=== PATIENT | female | born 1965 | race Two or more races ===

== ENCOUNTER 2019-03-09 10:46 | Emergency (ER) | payer MEDICAID ==
[~2019-03-09] VITALS: Ht 160 cm; Wt 131.5 kg
[2019-03-09 10:53] VITALS: BP 170/83
[2019-03-09 11:23] LABS: Basophils # (auto) 0 uL; Basophils % (auto) 0.8 % (0.0-2.0); Eosinophils # (auto) 0.2 uL; Eosinophils % (auto) 3.3 % (0.0-7.0); Hematocrit 45.4 % (36.0-46.0); Hemoglobin 15.8 g/dL (12.2-16.2); Lymphocytes # (auto) 1.7 uL; Lymphocytes % (auto) 29.7 % (10.0-50.0); Mean Corpuscular Hemoglobin 30.7 pg (28.0-32.0); Mean Corpuscular Hgb Conc. 34.8 g/dL (32.0-36.0); Mean Corpuscular Volume 88.1 fL (80.0-100.0); Monocytes # (auto) 0.3 uL; Monocytes % (auto) 4.9 % (0.0-12.0); Neutrophils # (auto) 3.5 uL; Neutrophils % (auto) 61.3 % (37.0-80.0); Nucleated Red Blood Cells % 0.2 %; Platelet Count (auto) 240 10^3/uL (140-450); Red Blood Cells 5.15 10^6/uL (4.0-5.20); Red Cell Distribution Width 12.8 % (11.8-14.3); White Blood Cell 5.8 10^3/uL (4.4-10.8)
[2019-03-09 11:39] LABS: Anion Gap 5 (5-15); Blood Urea Nitrogen 10 mg/dL (7-18); Calcium 8.9 mg/dL (8.5-10.1); Carbon Dioxide 27 mmol/L (21-32); Chloride 105 mmol/L (98-107); Glucose 140 mg/dL (74-106); Potassium 3.9 mmol/L (3.5-5.1); Sodium 137 mmol/L (136-145)
[2019-03-09 11:47] LABS: Alanine Aminotransferase 36 U/L (13-56); Alkaline Phosphatase 101 U/L (45-117); Aspartate Aminotransferase 30 U/L (15-37); BUN/Creatinine Ratio 15.6; Bilirubin, Total 1.5 mg/dL (0.2-1.0); GFR African American 124 mL/min; GFR Non-African American 103 mL/min; Total Protein 7.6 g/dL (6.4-8.2)
== END 2019-03-09 15:35 | disposition left against medical advice (07) ==
LOC: ER 10:46
DX: M25.512 Pain in left shoulder (principal); Z53.21 Procedure and treatment not carried out due to patient leaving prior to being seen by health care provider
CPT/HCPCS: 36415; 80053; 84484; 85025

== ENCOUNTER 2022-01-01 07:16 | Emergency (ER) | payer MEDICAID ==
[~2022-01-01] VITALS: Ht 160 cm; Wt 136.1 kg
[2022-01-01 08:02] LABS: Basophils # (auto) 0 10 ^3/uL (0-0.2); Basophils % (auto) 0.7 % (0.0-2.0); Eosinophils # (auto) 0.1 10 ^3/uL (0-0.8); Eosinophils % (auto) 1.8 % (0.0-7.0); Hematocrit 48.4 % (36.0-46.0); Hemoglobin 16.4 g/dL (12.2-16.2); Lymphocytes # (auto) 1.6 10 ^3/uL (0.4-5.4); Lymphocytes % (auto) 28.7 % (10.0-50.0); Mean Corpuscular Hemoglobin 30.1 pg (28.0-32.0); Mean Corpuscular Hgb Conc. 33.8 g/dL (32.0-36.0); Monocytes # (auto) 0.3 10 ^3/uL (0-1.3); Monocytes % (auto) 5.8 % (0.0-12.0); Neutrophils # (auto) 3.6 10 ^3/uL (1.6-8.6); Nucleated Red Blood Cells % 0.2 %; Red Blood Cells 5.44 10^6/uL (4.0-5.20); Red Cell Distribution Width 13.1 % (11.8-14.3); White Blood Cell 5.7 10^3/uL (4.4-10.8)
[2022-01-01 08:15] LABS: Albumin 3.9 g/dL (3.4-5.0); Calcium 9.7 mg/dL (8.5-10.1); Potassium 4.1 mmol/L (3.5-5.1)
[2022-01-01] MEDS ORDERED: IOHEXOL 350 MG/ML 100ML IJ ONE (08:19)
[2022-01-01 08:21] LABS: BUN/Creatinine Ratio 14.6; Bilirubin, Total 2.3 mg/dL (0.2-1.0); Total Protein 7.7 g/dL (6.4-8.2)
[2022-01-01 08:30] LABS: INR 1.04 (0.9-1.15)
[2022-01-01 08:32] LABS: Partial Thromboplastin Time 25.7 sec (23.6-33.0)
[2022-01-01 08:49] LABS: Urine Bacteria FEW /hpf (None Seen); Urine Blood Negative /uL (Negative); Urine WBC 1 /hpf (0 - 5)
[2022-01-01] MEDS ORDERED: FAMOTIDINE (10MG/ML) 2ML VL IV ONE (10:45)
[2022-01-01] MEDS ORDERED: ONDANSETRON HCL 4 MG/2 ML VIAL IV ONE (10:45)
[2022-01-01] MEDS ORDERED: LIDOCAINE VISCOUS 2% 15ML UD PO ONE (10:45)
[2022-01-01] MEDS ORDERED: ALUM & MAG HYDROX-SIMETH LIQ(MAALOX) 30 ML PO ONE (10:45)
[2022-01-01] MEDS ORDERED: LACTATED RINGER'S 2,000 ML IV ONE (10:45)
[2022-01-01 15:00] VITALS: BP 131/79
== END 2022-01-01 15:18 | disposition home or self-care (01) ==
LOC: ER 07:16
DX: K29.70 Gastritis, unspecified, without bleeding (principal)
CPT/HCPCS: 36415; 36600; 71275; 80053; 81001; 82805; 82962; 83690; 83735; 84484; 85025; 85610; 85730; 93005; 96361; 96374; 96375; 99285; J2405; J3490; Q9967

== ENCOUNTER 2025-05-27 07:20 | Inpatient (IN) | payer MEDICAID ==
[~2025-05-27] VITALS: Ht 160 cm; Wt 143.0 kg
--- NOTE | 2025-05-27 07:54 | ED.PDOC ---
GI ASSESSMENT HPI Comments This is a 60 year-old female, with a Hx of DM and HTN, who presents to the ED with a chief complaint of lower abdominal pain with associated Nausea and Diarrhea as of X5 days ago. Patient states abdominal pain was epigastric, then umbilical, and now within the lower quadrant. Patient additionally notes abdominal pain is associated with dark colored urine. Patient reports hematuria X3 weeks ago, prescribed antibiotics for UTI, with relief since. Patient has no further complaints at this time and otherwise denies further associated symptoms of dizziness, weakness, emesis, hematemesis, dysuria, or hematuria. Chief Complaint: Abdominal Pain Time Seen by MD: 07:38 Primary Care Provider: HAIR Newman Notes: Medications, Allergies Allergies: Coded Allergies: Erythromycin (Verified Allergy, Severe, 03/09/19) Fluconazole (Verified Allergy, Severe, 03/09/19) Glyburide (Verified Allergy, Severe, 03/09/19) Home Meds Reported Medications Glipizide (Glipizide) 5 Mg Tab, 5 MG PO BID for 30 Days, MG 05/27/25 Metformin Hydrochloride (Metformin Hcl) 500 Mg Tab, 500 MG PO QID for 30 Days, MG 05/27/25 Losartan Potassium (Losartan Potassium) 100 Mg Tab, 100 MG PO DAILY for 30 Days, MG 05/27/25 Metoprolol Succinate (Metoprolol Succinate Er) 50 Mg Tab, 50 MG PO DAILY for 30 Days, MG 05/27/25 Levothyroxine Sodium (Levothyroxine Sodium) 50 Mcg Tab, 50 MCG PO QAM for 30 Days, MCG 05/27/25 Amlodipine Besylate (NORVASC TABLET) 5 Mg Tb, 1 TAB PO DAILY, #30 TAB 5 Refills 05/27/25 Information Source: Patient Mode of Arrival: Ambulatory Timing: Days Duration: Since onset Prehospital treatment: None Severity: Moderate Pain Location: Diffuse, Epigastric Associated sign and symptoms: Nausea, Diarrhea, Abdominal Pain Past Medical History PAST MEDICAL HISTORY: DM, HTN Surgical History: Cholecystectomy, Hysterectomy [employer] History: No Pertinent [employer] History Family History Family History: Reviewed,noncontributory to illness, Unobtainable Social History Smoker: Non-Smoker Alcohol: Denies ETOH Use Drugs: Denies Drug Use Lives In: Home Constitutional: denies: chills, diaphoresis, fatigue, fever, malaise, sweats, weakness, others EENTM: denies: blurred vision, double vision, ear bleeding, ear discharge, ear drainage, ear pain, ear ringing, eye pain, eye redness, hearing loss, mouth pain, mouth swelling, nasal discharge, nose bleeding, nose congestion, nose pain, photophobia, tearing, throat pain, throat swelling, voice changes, others Respiratory: denies: cough, hemoptysis, orthopnea, SOB at rest, shortness of breath, SOB with excertion, stridor, wheezing, others Cardiovascular: denies: chest pain, dizzy spells, diaphoresis, Dyspnea on exertion, edema, irregular heart beat, left arm pain, lightheadedness, palpitations, PND, syncope, others Gastrointestinal: reports: abdominal pain, diarrhea, nausea; denies: abdomen distended, blood streaked bowels, constipated, dysphagia, difficulty swallowing, hematemesis, melena, poor appetite, poor fluid intake, rectal bleeding, rectal pain, vomiting, others Genitourinary: denies: abnormal vagina bleeding, burning, dyspareunia, dysuria, flank pain, frequency, hematuria, incontinence, pain, , vagina discharge, urgency, others Neurological: denies: dizziness, fainting, headache, left sided numbness, left sided weakness, numbness, paresthesia, pre-existing deficit, right sided numbness, right sided weakness, seizure, speech problems, tingling, tremors, weakness, others Musculoskeletal: denies: back pain, gout, joint pain, joint swelling, muscle pain, muscle stiffness, neck pain, others Integumetry: denies: bruises, change in color, change in hair/nails, dryness, laceration, lesions, lumps, rash, wounds, others Allergic/Immunocompromised: denies: Difficulty Healing, Frequent Infections, Hives, Itching, others Hematologic/Lymphatic: denies: anemia, blood clots, easy bleeding, easy brui sing, swollen glands, others Endocrine: denies: excessive hunger, excessive sweating, excessive thirst, ex cessive urination, flushing, intolerance to cold, intolerance to heat, unexplained weight gain, unexplained weight loss, others Psychiatric: denies: anxiety, bipolar disorder, depression, hopeless, panic disorder, schizophrenia, sleepless, suicidal, others All Other Systems: Reviewed and Negative Physical Exam General Appearance: Mild Distress HEENT: Pharynx Normal Neck: Normal Inspection Respiratory: No Respiratory Distress Cardiovascular: No Edema Breast Exam: Deferred Gastrointestinal: Tenderness Genitalia: Deferred Pelvic: Deferred Rectal: Deferred Extremities: No pedal edema Neurologic: No Motor Deficits Cerebellar Function: NOT DONE Reflexes: NOT DONE Skin: Normal Color Lymphatic: NOT DONE Was a procedure done? Was a procedure done?: No GI differential Dx Differential Diagnosis: Constipation, Gastritis/PUD, Gastroenteritis, Inflammatory BD, Dehydration, Bacterial, Parasitic, Viral X-Ray, Labs, Meds, VS Vital Signs Date Time Temp Pulse Resp B/P (MAP) Pulse Ox O2 Delivery O2 Flow Rate FiO2 05/27/25 12:15 77 17 130/73 05/27/25 11:45 91 16 131/83 05/27/25 11:42 97 Room Air* 0 21 05/27/25 10:35 90 16 135/82 (99) 95 05/27/25 08:33 98.2 87 17 135/91 (106) 97 98.2 05/27/25 08:33 87 17 97 Room Air 05/27/25 07:23 98.3 96 13 166/97 95 98.3 Lab Test 05/27/25 10:27 05/27/25 08:05 05/27/25 07:45 Range/Units Lactic Acid Level 1.3 0.4-2.0 mmol/L White Blood Count 4.3 L 4.4-10.8 10^3/uL Red Blood Count 5.28 H 4.0-5.20 10^6/uL Hemoglobin 15.9 12.2-16.2 g/dL Hematocrit 48.0 H 36.0-46.0 % Mean Corpuscular Volume 90.8 80.0-100.0 fL Mean Corpuscular Hemoglobin 30.2 28.0-32.0 pg Mean Corpuscular Hemoglobin Concent 33.2 32.0-36.0 g/dL Red Cell Distribution Width 13.6 11.8-14.3 % Platelet Count 270 140-450 10^3/uL Mean Platelet Volume 8.6 6.9-10.8 fL Neutrophils (%) (Auto) 67.6 37.0-80.0 % Lymphocytes (%) (Auto) 20.7 10.0-50.0 % Monocytes (%) (Auto) 8.7 0.0-12.0 % Eosinophils (%) (Auto) 2.3 0.0-7.0 % Basophils (%) (Auto) 0.7 0.0-2.0 % Neutrophils # (Auto) 2.9 1.6-8.6 10 ^3/uL Lymphocytes # (Auto) 0.9 0.4-5.4 10 ^3/uL Monocytes # (Auto) 0.4 0-1.3 10 ^3/uL Eosinophils # (Auto) 0.1 0-0.8 10 ^3/uL Basophils # (Auto) 0 0-0.2 10 ^3/uL Nucleated Red Blood Cells 0.1 % Sodium Level 136 136-145 mmol/L Potassium Level 3.6 3.5-5.1 mmol/L Chloride Level 99 98-107 mmol/L Carbon Dioxide Level 24 20-31 mmol/L Anion Gap 13 5-15 Blood Urea Nitrogen 10 9-23 mg/dL Creatinine 0.77 0.550-1.02 mg/dL Glomerular Filtration Rate Calc 88 >90 mL/min BUN/Creatinine Ratio 13.0 10.0-20.0 Serum Glucose 273 H 74-106 mg/dL Hemoglobin A1c 9.9 H <5.7 % A1C Calcium Level 9.6 8.7-10.4 mg/dL Phosphorus Level 2.6 2.4-5.1 mg/dL Magnesium Level 1.6 1.6-2.6 mg/dL Total Bilirubin 5.5 H 0.2-1.0 mg/dL Aspartate Amino Transferase (AST) 127 H 13-40 U/L Alanine Aminotransferase (ALT) 206 H 7-40 U/L Alkaline Phosphatase 222 H 46-116 U/L Total Protein 7.0 5.7-8.2 g/dL Albumin 4.1 3.2-4.8 g/dL Triglycerides Level 369 H < 150 mg/dL Cholesterol Level 226 H < 200 mg/dL LDL Cholesterol 121 H < 100 mg/dL HDL Cholesterol 22 L 40-59 mg/dL Lipase 37 12-53 U/L Vitamin B12 Level Pending Vitamin D 25-Hydroxy Pending Thyroid Stimulating Hormone (TSH) 2.04 0.55-4.78 uIU/mL Hepatitis A IgM Antibody Pending Hepatitis B Surface Antigen Pending Hepatitis B Core IgM Antibody Pending Hepatitis C Antibody Pending Urine Color Dark-yellow Yellow Urine Clarity Turbid H Clear Urine pH 6.0 5.0-9.0 Urine Specific [place] 1.020 1.001-1.035 Urine Protein 1+ H Negative Urine Ketones 3+ H Negative Urine Blood 3+ H Negative /uL Urine Nitrite Negative Negative Urine Bilirubin 2+ H Negative Urine Urobilinogen 4 H Negative mg/dL Urine Leukocyte Esterase 2+ Negative /uL Urine RBC 2863 0 - 4 /hpf Urine WBC Clumps Present None Seen /hpf Urine Microscopic WBC 78 H 0-5 /HPF Urine Squamous Epithelial Cells Few <5 /hpf Urine Bacteria None seen None Seen /hpf Urine Glucose 4+ H Normal mg/dL Current Medications Medications (Trade) Dose Ordered Sig/Jayashree Route Start Time Stop Time Status Last Admin Sodium Chloride 1,000 ml @ 1,000 mls/hr Q1H ONCE IV 05/27/25 09:45 05/27/25 10:44 DC 05/27/25 11:45 Morphine Sulfate 4 mg ONCE ONCE IV 05/27/25 09:45 05/27/25 10:04 DC 05/27/25 11:45 Ondansetron HCl (Zofran) 4 mg ONCE ONCE IV 05/27/25 09:45 05/27/25 10:04 DC 05/27/25 11:43 Cefepime HCl 50 ml @ 12.5 mls/hr ONCE ONCE IV 05/27/25 09:45 05/27/25 13:44 DC 05/27/25 11:45 Ketorolac Tromethamine (Toradol Injection) 15 mg ONCE ONCE IV 05/27/25 11:30 05/27/25 12:23 DC 05/27/25 16:08 Tamsulosin HCl (Flomax) 0.4 mg ONCE ONCE PO 05/27/25 11:30 05/27/25 12:23 DC 05/27/25 16:14 Ondansetron HCl (Zofran) 4 mg Q4HP PRN IV 05/27/25 12:45 05/27/25 18:47 Images Reviewed?: Images reviewed and evaluated by me Time of 1ST Reevaluation: 08:39 Reevaluation 1ST: Unchanged Patient Education/Counseling: Diagnosis, Treatment Family Education/Counseling: No Family Present SEPSIS Sepsis Screen Date sepsis recognized/suspect: May 27, 2025 Time Sepsis recognized/suspect: 722 Recent Procedure: No On Antibiotic Therapy: No Respiratory Rate >20: No Heart Rate >90: Yes Temp<36 C (96.8 F) or >38.3 C: No SBP <90 or MAP <65 mmHG: No New Acute Mental Status Change: No Is the patient on CPAP, BIPAP,: No Physician Orders Blood Culture (05/27/25 09:33) Ct Ab Pel With Iv Con Only (05/27/25 09:33) * Urology Consult (05/27/25 11:23) Vital Signs Date Time Temp Pulse Resp B/P (MAP) Pulse Ox O2 Delivery O2 Flow Rate FiO2 05/27/25 12:15 77 17 130/73 05/27/25 11:45 91 16 131/83 05/27/25 11:42 97 Room Air* 0 21 05/27/25 10:35 90 16 135/82 (99) 95 05/27/25 08:33 98.2 87 17 135/91 (106) 97 98.2 05/27/25 08:33 87 17 97 Room Air 05/27/25 07:23 98.3 96 13 166/97 95 98.3 Laboratory Tests Test 05/27/25 08:05 05/27/25 10:27 White Blood Count 4.3 10^3/uL (4.4-10.8) L Lactic Acid Level 1.3 mmol/L (0.4-2.0) Medications Medications Dose Ordered Sig/Jayashree Route Start Time Stop Time Status Last Admin Dose Admin Cefepime HCl 50 ml @ 12.5 mls/hr ONCE ONCE IV 05/27/25 09:45 05/27/25 13:44 DC 05/27/25 11:45 Ketorolac Tromethamine 15 mg ONCE ONCE IV 05/27/25 11:30 05/27/25 12:23 DC 05/27/25 16:08 Morphine Sulfate 4 mg ONCE ONCE IV 05/27/25 09:45 05/27/25 10:04 DC 05/27/25 11:45 Ondansetron HCl 4 mg ONCE ONCE IV 05/27/25 09:45 05/27/25 10:04 DC 05/27/25 11:43 Ondansetron HCl 4 mg Q4HP PRN IV 05/27/25 12:45 05/27/25 18:47 Sodium Chloride 1,000 ml @ 1,000 mls/hr Q1H ONCE IV 05/27/25 09:45 05/27/25 10:44 DC 05/27/25 11:45 Tamsulosin HCl 0.4 mg ONCE ONCE PO 05/27/25 11:30 05/27/25 12:23 DC 05/27/25 16:14 Departure 1 Departure Time of Disposition: 19:28 (Patient presented with abdominal pain that was concerning for possible appendicits, gastritis, cholecystitis, colitis, gastroenteritis, sbo, or orther possible surgical emergency. Data: 1. I ordered and reviewed the result of at least 3 labs including a CBC, BMP, and Urinalysis. 2. I independently interpreted the following tests: CT Abdomen and Pelvis is concerning for ureteral colic .Risk:This patient has a high risk of morbidity due to further diagnostic testing or treatment and may suffer from an acute abdominal process disorder. Workup reveals ureteral colic and intractable abdominal pain and patient should be admitted for further workup. and possible expert consultation. ) Impression: Primary Impression: Intractable abdominal pain Additional Impressions: Ureteral colic Generalized weakness Disposition: ADMITTED INPATIENT Admit to: Med Surg Condition: Guarded Critical Care Note Critical Care Time?: Yes Critical care comment: Intractable abdominal pain Authorized and Performed by: David Hyde MD Total critical care time: Approximately 37 minutes Due to a high probability of clinically significant, life threatening deterioration, the patient required my highest level of preparedness to intervene emergently and I personally spent this critical care time directly and personally managing the patient. This critical care time included obtaining a history; examining the patient; pulse oximetry; ordering and review of studies; arranging urgent treatment with development of a management plan; evaluation of patient's response to treatment; frequent reassessment; and, discussions with other providers. This critical care time was performed to assess and manage the high probability of imminent, life-threatening deterioration that could result in multi-organ failure. It was exclusive of separately billable procedures and treating other patients and teaching time. Please see my other sections and the rest of the note for further information on patient assessment and treatment. Stability Stability form required: No Heart Score Heart Score: Heart Score Response (Comments) Value History N/A 0 EKG N/A 0 Age N/A 0 Risk Factors N/A 0 Troponin N/A 0 Total 0 I personally scribed for DAVID HYDE MD ([facility] on 05/27/25 at 07:54. Electronically submitted by Junie Lakhani ([place]). I personally scribed for DAVID HYDE MD ([facility]) on 05/27/25 at 07:55. Electronically submitted by Junie Lakhani ([place]). I personally scribed for DAVID HYDE MD ([facility]) on 05/27/25 at 08:01. Electronically submitted by Junie Lakhani ([place]). DAVID HYDE MD May 27, 2025 07:54
[2025-05-27 08:34] LABS: Hematocrit 48.0 % (36.0-46.0); Hemoglobin 15.9 g/dL (12.2-16.2); Mean Corpuscular Hemoglobin 30.2 pg (28.0-32.0); Mean Corpuscular Volume 90.8 fL (80.0-100.0); Nucleated Red Blood Cells % 0.1 %
[2025-05-27 08:44] LABS: Urine Protein, UAD 1+ (Negative); Urine WBC Clumps PRESENT /hpf (None Seen)
[2025-05-27 08:48] LABS: Albumin 4.1 g/dL (3.2-4.8); Anion Gap 13 (5-15); BUN/Creatinine Ratio 13.0 (10.0-20.0); Blood Urea Nitrogen 10 mg/dL (9-23); Calcium 9.6 mg/dL (8.7-10.4); Carbon Dioxide 24 mmol/L (20-31); Chloride 99 mmol/L (98-107); Lipase 37 U/L (12-53); Potassium 3.6 mmol/L (3.5-5.1); Total Protein 7.0 g/dL (5.7-8.2)
[2025-05-27 08:52] LABS: Alkaline Phosphatase 222 U/L (46-116); Glucose 273 mg/dL (74-106); Sodium 136 mmol/L (136-145)
[2025-05-27 08:53] LABS: Alanine Aminotransferase 206 U/L (7-40); Bilirubin, Total 5.5 mg/dL (0.2-1.0)
--- NOTE | 2025-05-27 10:34 | DVH ---
CT abdomen and pelvis with contrast INDICATION: abdominal pain TECHNIQUE: Following IV administration of 100 cc Omnipaque 300 Serial axial images were performed through the abdomen and pelvis and then reformatted in the sagittal and coronal plane. All CT scans at this medical facility are performed using dose modulation techniques as appropriate to a performed exam including the following: Automated exposure control was utilized; adjustment of the MA and/or KvP according to patient size; and use of iterative reconstruction technique. FINDINGS: Lung bases clear. Liver and spleen are normal in size without focal mass. There is fatty infiltration of the liver. There is a 4-5 mm stone in the right renal pelvis with mild right hydronephrosis. No masses or enlargement of the adrenal glands or pancreas. No biliary dilatation. Gallbladder has been removed. No distention of bowel loops to suggest mechanical obstruction of bowel. The appendix is and not well seen. No free fluid. Within the pelvis, bladder is smooth walled without stones. No abnormal masses or fluid collections. IMPRESSION: 1. 4-5 mm stone right renal pelvis with mild hydronephrosis. Computed Tomographic Radiation Dosimetry Report: Total CTDI vol = 27 mGy Total DLP = 1526 mGy-cm Low dose protocols were performed.
[2025-05-27] MEDS: ONDANSETRON HCL 4 MG/2 ML VIAL ONE ×2 (10:59→18:46)
[2025-05-27] MEDS: MORPHINE SULFATE 4 MG/ML SYR/VIAL ONE (11:02)
[2025-05-27] MEDS: ONDANSETRON HCL 4 MG/2 ML VIAL IV ONE (11:43)
[2025-05-27] MEDS: MORPHINE SULFATE 4 MG/ML SYR/VIAL IV ONE (11:45)
[2025-05-27] MEDS: CEFEPIME 2GM/50ML NS 50 ML IV ONE (11:45)
[2025-05-27] MEDS: SODIUM CHLORIDE 0.9% 1,000 ML IV ONE ×2 (11:45→16:17)
[2025-05-27] MEDS ORDERED: KETOROLAC TROMETH 30 MG/ML 1ML VIAL IV PRN (12:45)
[2025-05-27] MEDS ORDERED: SODIUM CHLORIDE 0.9% 1,000 ML IV ONE (12:45)
--- NOTE | 2025-05-27 12:56 | DVHHPRES ---
History of Present Illness Resident Creating Document: BHARATI BUTCHER History of Present Illness Lisa Antonio 60-year-old female patient who presents to the ED with chief complaint of abdominal pain which initiated in epigastrium radiated towards umbilical area and then towards suprapubic area, associated with nausea and decreased appetite which started approximately one week ago. Patient also complaint of nonbloody diarrhea yellow in coloration which occurred for three days before episode (patient says that she had similar symptoms when she had an H. pylori infection). Denies any other associated symptom. Past medical history: Hypertension, dyslipidemia, diabetes, hypothyroidism, pep tic ulcer disease secondary to H pylori, nonsurgical AAA (followed up by her PCP), rectal cancer status post resection, benign breast tumor, Gilbert syndrome Surgical history: EGD, multiple colonoscopies last one in 2023 which was clear from cancer, 2002 hysterectomy, breast lumpectomy, 2017 rectal cancer resection Family history: Colon cancer in all her family, breast cancer in mother Social history: Lives in [place] with family (next of kin is daughter, Yesica). Denies current tobacco, alcohol and other drug abuse Allergies: Erythromycin Home medication: Amlodipine5 mg p.o. daily, levothyroxine 50 mcg p.o. daily, losartan 100 mg p.o. daily, metoprolol 50 mg p.o. daily, metformin 1000 mg p.o. q.12, glipizide5 mg p.o. b.i.d. Patient seen and examined at bedside. Currently has no new complaints. Patient admitted for further evaluation. Past Medical History Per HPI Past Surgical History Per HPI Family History Per HPI Past Social History Per HPI Review of Systems Review of Systems Per HPI Allergies: Coded Allergies: Erythromycin (Verified Allergy, Severe, 03/09/19) Fluconazole (Verified Allergy, Severe, 03/09/19) Glyburide (Verified Allergy, Severe, 03/09/19) Exam Vital Signs Vital Signs Date Time Temp Pulse Resp B/P (MAP) Pulse Ox O2 Delivery O2 Flow Rate FiO2 05/27/25 11:45 91 16 131/83 05/27/25 11:42 97 Room Air* 0 21 05/27/25 08:33 98.2 98.2 Exam Patient lying in bed, in no acute distress General: Lucid, afebrile, mucosae are moist Cardiovascular: Normal S1 and S2. No murmurs, gallops or rubs Respiratory: Normal ventilation mechanics. Clear lung sounds on auscultation Abdomen: Soft, mild tenderness with superficial palpation of epigastrium, umbilical and suprapubic area, rest of abdomen nontender, no organomegaly, normal bowel sounds : Negative aspirin costovertebral tenderness MSK/skin: Mobilizes 4 limbs. Skin is dry and warm Neurological: Oriented in 3 spheres. No motor no sensitive deficits. Pupils are isocoric and reactive Labs/Xrays Labs Test 05/27/25 10:27 05/27/25 08:05 05/27/25 07:45 Range/Units Lactic Acid Level 1.3 0.4-2.0 mmol/L White Blood Count 4.3 L 4.4-10.8 10^3/uL Red Blood Count 5.28 H 4.0-5.20 10^6/uL Hemoglobin 15.9 12.2-16.2 g/dL Hematocrit 48.0 H 36.0-46.0 % Mean Corpuscular Volume 90.8 80.0-100.0 fL Mean Corpuscular Hemoglobin 30.2 28.0-32.0 pg Mean Corpuscular Hemoglobin Concent 33.2 32.0-36.0 g/dL Red Cell Distribution Width 13.6 11.8-14.3 % Platelet Count 270 140-450 10^3/uL Mean Platelet Volume 8.6 6.9-10.8 fL Neutrophils (%) (Auto) 67.6 37.0-80.0 % Lymphocytes (%) (Auto) 20.7 10.0-50.0 % Monocytes (%) (Auto) 8.7 0.0-12.0 % Eosinophils (%) (Auto) 2.3 0.0-7.0 % Basophils (%) (Auto) 0.7 0.0-2.0 % Neutrophils # (Auto) 2.9 1.6-8.6 10 ^3/uL Lymphocytes # (Auto) 0.9 0.4-5.4 10 ^3/uL Monocytes # (Auto) 0.4 0-1.3 10 ^3/uL Eosinophils # (Auto) 0.1 0-0.8 10 ^3/uL Basophils # (Auto) 0 0-0.2 10 ^3/uL Nucleated Red Blood Cells 0.1 % Sodium Level 136 136-145 mmol/L Potassium Level 3.6 3.5-5.1 mmol/L Chloride Level 99 98-107 mmol/L Carbon Dioxide Level 24 20-31 mmol/L Anion Gap 13 5-15 Blood Urea Nitrogen 10 9-23 mg/dL Creatinine 0.77 0.550-1.02 mg/dL Glomerular Filtration Rate Calc 88 >90 mL/min BUN/Creatinine Ratio 13.0 10.0-20.0 Serum Glucose 273 H 74-106 mg/dL Calcium Level 9.6 8.7-10.4 mg/dL Total Bilirubin 5.5 H 0.2-1.0 mg/dL Aspartate Amino Transferase (AST) 127 H 13-40 U/L Alanine Aminotransferase (ALT) 206 H 7-40 U/L Alkaline Phosphatase 222 H 46-116 U/L Total Protein 7.0 5.7-8.2 g/dL Albumin 4.1 3.2-4.8 g/dL Lipase 37 12-53 U/L Urine Color Dark-yellow Yellow Urine Clarity Turbid H Clear Urine pH 6.0 5.0-9.0 Urine Specific [place] 1.020 1.001-1.035 Urine Protein 1+ H Negative Urine Ketones 3+ H Negative Urine Blood 3+ H Negative /uL Urine Nitrite Negative Negative Urine Bilirubin 2+ H Negative Urine Urobilinogen 4 H Negative mg/dL Urine Leukocyte Esterase 2+ Negative /uL Urine RBC 2863 0 - 4 /hpf Urine WBC Clumps Present None Seen /hpf Urine Microscopic WBC 78 H 0-5 /HPF Urine Squamous Epithelial Cells Few <5 /hpf Urine Bacteria None seen None Seen /hpf Urine Glucose 4+ H Normal mg/dL SEPSIS Sepsis Screen Date sepsis recognized/suspect: May 27, 2025 Time Sepsis recognized/suspect: 07 Recent Procedure: No On Antibiotic Therapy: No Respiratory Rate >20: No Heart Rate >90: Yes Temp<36 C (96.8 F) or >38.3 C: No SBP <90 or MAP <65 mmHG: No New Acute Mental Status Change: No Is the patient on CPAP, BIPAP,: No Physician Orders Blood Culture (05/27/25 09:33) Ct Ab Pel With Iv Con Only (05/27/25 09:33) Cefepime 2gm/50ml Ns (Maxipime 2gm/50ml) (05/27/25 09:45) * Urology Consult (05/27/25 11:23) Admit (05/27/25 12:45) Code Status (05/27/25 12:45) Ondansetron Hcl (Zofran) (05/27/25 12:45) Complete Blood Count (05/28/25 04:00) Comprehensive Metabolic Panel (05/28/25 04:00) Npo (Nothing By Mouth) Diet (05/27/25 Lunch) Enoxaparin Sodium (Lovenox) (05/28/25 10:00) Oxygen By Nasal Cannula (05/27/25 12:45) Stat Ekg For Chest Pain (05/27/25 12:45) Notify Md Of Changes From Base (05/27/25 12:45) Photofinishing Laboratory Worker For 24 Hours (05/27/25 12:45) Emergency Dysrhythmia Protocol (05/27/25 12:45) Rhythm Strips Once Every Shift (05/27/25 12:45) Ketorolac Injection (Toradol Injection) (05/27/25 12:45) Cefepime 1gm/50ml (Maxipime 1gm/50ml) (05/27/25 14:00) Tamsulosin Hydrochloride (Flomax) (05/27/25 18:00) Sodium Chloride 0.9% (05/27/25 12:45) Sodium Chloride 0.9% (05/27/25 12:45) Pantoprazole (Protonix) (05/27/25 12:45) Pantoprazole (Protonix) (05/28/25 10:00) Vitamin D, 25-Hydroxy (05/27/25 12:45) Vitamin B12 (05/27/25 12:45) Thyroid Stimulating Hormone (05/27/25 12:45) PTPTT (05/27/25 12:45) Phosphorus (05/27/25 12:45) Magnesium (05/27/25 12:45) Lipid Panel (05/27/25 12:45) Hemoglobin A1c (05/27/25 12:45) Drug Screen (05/27/25 12:45) Acute Hepatitis Panel (05/27/25 12:45) Urine Bacterial Culture (05/27/25 12:45) Respiratory Culture W/ Gs (05/27/25 12:45) Chest Xray 1 View (05/27/25 12:45) LIVER (05/27/25 12:54) Vital Signs Date Time Temp Pulse Resp B/P (MAP) Pulse Ox O2 Delivery O2 Flow Rate FiO2 05/27/25 11:45 91 16 131/83 05/27/25 11:42 97 Room Air* 0 21 05/27/25 10:35 90 16 135/82 (99) 95 05/27/25 08:33 98.2 87 17 135/91 (106) 97 98.2 05/27/25 08:33 87 17 97 Room Air 05/27/25 07:23 98.3 96 13 166/97 95 98.3 Laboratory Tests Test 05/27/25 08:05 05/27/25 10:27 White Blood Count 4.3 10^3/uL (4.4-10.8) L Lactic Acid Level 1.3 mmol/L (0.4-2.0) Medications Medications Dose Ordered Sig/Jayashree Route Start Time Stop Time Status Last Admin Dose Admin Cefepime HCl 50 ml @ 12.5 mls/hr ONCE ONCE IV 05/27/25 09:45 05/27/25 13:44 05/27/25 11:45 12.5 MLS/HR Morphine Sulfate 4 mg ONCE ONCE IV 05/27/25 09:45 05/27/25 10:04 DC 05/27/25 11:45 4 MG Ondansetron HCl 4 mg ONCE ONCE IV 05/27/25 09:45 05/27/25 10:04 DC 05/27/25 11:43 4 MG Sodium Chloride 1,000 ml @ 1,000 mls/hr Q1H ONCE IV 05/27/25 09:45 05/27/25 10:44 DC 05/27/25 11:45 1,000 MLS/HR Assessment/Plan Assessment/Plan ASSESSMENT Nephrolithiasis with mild hydronephrosis UTI Microscopic hematuria Transaminitis Rule out choledocholithiasis Hypertension Dyslipidemia Diabetes Hypothyroidism History of peptic ulcer disease secondary to Helicobacter pylori-completed treatment History of rectal cancer status postop Gilbert's syndrome Morbid obesity PLAN Completed abdomen and pelvis CT which shows 4-5 mm right pelvic nephrolithiasis with mild hydronephrosis Currently patient feels better after IV fluids and tamsulosin. If deemed necessary, consult Urology. Ordered liver ultrasound which showed dilated common bile duct. Ordered MRCP to rule out choledocholithiasis Ordered hepatitis panel Patient currently is on clear liquid diet, tolerating. Currently under empiric IV antibiotic (cefepime) On insulin sliding scale Continued home medication. Goals of care discussed with patient for over18 minutes: Full code status Discussed plan with Dr. Harris, patient and nurses: Admitted patient to [facility]. Currently on clear liquid diet, I IV antibiotics, on IV fluids and tamsulosin. Pending MRCP. Plan discussed with: Patient, Daughter, Other (Nurses) My Orders Orders - BHARATI BUTCHER RESIDENT Procedure Category Date Status Time Admit ADMIT 05/27/25 Transmitted 12:45 Code Status CODE 05/27/25 Transmitted 12:45 Ondansetron Hcl PHA 05/27/25 Logged (Zofran) 12:45 Complete Blood Count LAB 05/28/25 Verified 04:00 Comprehensive LAB 05/28/25 Verified Metabolic Panel 04:00 Npo (Nothing By DIET 05/27/25 Transmitted Mouth) Diet Lunch Enoxaparin Sodium PHA 05/28/25 Logged (Lovenox) 10:00 Oxygen By Nasal RT 05/27/25 Transmitted Cannula 12:45 Stat Ekg For Chest [facility] 05/27/25 In Process Pain 12:45 Notify Of Changes [facility] 05/27/25 In Process From Base 12:45 Photofinishing Laboratory Worker For [facility] 05/27/25 In Process 24 Hours 12:45 Emergency Dysrhythmia [facility] 05/27/25 In Process Protocol 12:45 Rhythm Strips Once [facility] 05/27/25 In Process Every Shift 12:45 Ketorolac Injection PHA 05/27/25 Logged (Toradol Injection) 12:45 Cefepime 1gm/50ml PHA 05/27/25 Logged (Maxipime 1gm/50ml) 14:00 Tamsulosin PHA 05/27/25 Logged Hydrochloride (Flomax) 18:00 Sodium Chloride 0.9% PHA 05/27/25 Logged 12:45 Sodium Chloride 0.9% PHA 05/27/25 Logged 12:45 Pantoprazole PHA 05/27/25 Logged (Protonix) 12:45 Pantoprazole PHA 05/28/25 Logged (Protonix) 10:00 Vitamin D, 25-Hydroxy LAB 05/27/25 Logged 12:45 Vitamin B12 LAB 05/27/25 Logged 12:45 Thyroid Stimulating LAB 05/27/25 Logged Hormone 12:45 PTPTT LAB 05/27/25 Logged 12:45 Phosphorus LAB 05/27/25 Logged 12:45 Magnesium LAB 05/27/25 Logged 12:45 Lipid Panel LAB 05/27/25 Logged 12:45 Hemoglobin A1c LAB 05/27/25 Logged 12:45 Drug Screen LAB 05/27/25 Logged 12:45 Acute Hepatitis Panel LAB 05/27/25 Logged 12:45 Urine Bacterial GLENDA 05/27/25 Logged Culture 12:45 Respiratory Culture GLENDA 05/27/25 Logged W/ Gs 12:45 Chest Xray 1 View XY 05/27/25 Logged 12:45 LIVER US 05/27/25 Logged 12:54 Date of Service: May 27, 2025 Billing Provider: YOGI HARRIS MD Common Visit Codes: 83578-[id number] INP/OBS CARE (HIGH) Secondary Visit Codes: [id number] CARE PLAN 30 MINUTES BHARATI BUTCHER RESIDENT May 27, 2025 12:56
--- NOTE | 2025-05-27 13:23 | DVH ---
CHEST RADIOGRAPH Indication: Sepsis Technique: Single frontal view of the chest was obtained Comparison: CT ANGIO CHEST CONTRAST on DOS: 01/01/22 FINDINGS: Lines and Tubes: None Lungs: No focal consolidation. Pleura: No effusion. No pneumothorax. Cardiomediastinal contours: Unremarkable Bones: No acute osseous abnormality. IMPRESSION: 1. No acute cardiopulmonary disease.
[2025-05-27 14:14] LABS: INR 1.02 (0.9-1.15); Partial Thromboplastin Time 26.1 SEC (24.5-34.5); Prothrombin Time 10.8 sec (9.3-11.8)
--- NOTE | 2025-05-27 14:14 | DVH ---
STUDY: US LIVER TECHNIQUE: RUQ ultrasound was obtained using standard technique with Doppler. INDICATIONS: transaminitis FINDINGS: PANCREAS: Partially obscured LIVER: Enlarged liver to 18.5 cm. Increased echogenicity.. No mass. GALLBLADDER: Surgically removed COMMON BILE DUCT: Dilated to 11.6 mm. RIGHT KIDNEY: Measures 11.5 cm, within normal limits. Nonobstructive stone measuring 1 cm at the midpole. No hydronephrosis. No renal mass. Normal echogenicity. IMPRESSION: 1. Enlarged fatty liver. 2. Dilated common bile duct. 3. Nonobstructive right renal stone.
[2025-05-27 14:31] VITALS: BP 107/66; PULSE 72; RESP 18; TEMP 97.9; O2SAT 92
[2025-05-27 14:38] LABS: Magnesium 1.6 mg/dL (1.6-2.6)
[2025-05-27 14:41] LABS: Cholesterol 226.0 mg/dL (< 200); HDL Cholesterol 22.0 mg/dL (40-59); Triglycerides 369.0 mg/dL (< 150)
[2025-05-27] MEDS: TAMSULOSIN HYDROCHLORIDE 0.4 MG CAP PO ONE ×2 (15:05→16:14)
[2025-05-27] MEDS: PANTOPRAZOLE 40 MG/10 ML VIAL INJ IV ONE ×2 (15:05→16:12)
[2025-05-27] MEDS: KETOROLAC TROMETH 30 MG/ML 1ML VIAL ONE (15:06)
[2025-05-27] MEDS: SODIUM CHLORIDE 0.9% 1,000 ML IV SCH (15:46)
[2025-05-27] MEDS: KETOROLAC TROMETH 30 MG/ML 1ML VIAL IV ONE (16:08)
[2025-05-27] MEDS: CEFEPIME 1GM/50ML 50 ML IV SCH (16:16)
[2025-05-27 17:00] VITALS: BP 111/54; PULSE 74; RESP 20; TEMP 97.7; O2SAT 100
[2025-05-27] MEDS ORDERED: DEXTROSE (50%) 50ML SYRG IV PRN (17:30)
[2025-05-27] MEDS ORDERED: LEVO50TA7 PO (17:36)
[2025-05-27] MEDS ORDERED: LOSA-535 PO (17:36)
[2025-05-27] MEDS ORDERED: METO-289 PO (17:36)
[2025-05-27] MEDS ORDERED: METF-370 PO (17:36)
[2025-05-27] MEDS ORDERED: GLIP5TAB21 PO (17:36)
[2025-05-27] MEDS ORDERED: AML5T PO (17:36)
[2025-05-27] MEDS: TAMSULOSIN HYDROCHLORIDE 0.4 MG CAP PO SCH (18:00)
[2025-05-27] MEDS: ONDANSETRON HCL 4 MG/2 ML VIAL IV PRN (18:47)
[2025-05-27 20:00] VITALS: RESP 16; O2SAT 98
[2025-05-27 21:00] VITALS: BP 106/68; PULSE 101; RESP 18; TEMP 97.6; O2SAT 97
[2025-05-27] MEDS: InsuLIN REG 1unit/0.01ml Soln (100units/ml) ONE (21:52)
[2025-05-27] MEDS: InsuLIN REG 1unit/0.01ml Soln (100units/ml) SC SCH (21:59)
[2025-05-27] MEDS: ACCU-CHEK COMFORT CURVE STRIP VI SCH (21:59)
[2025-05-28] VITALS (8 sets, daily range): BP systolic 103–148; BP diastolic 50–90; PULSE 56–75; RESP 17–18; TEMP 97.4–97.8; O2SAT 94–98
[2025-05-28 01:29] LABS: Opiate Scree,Urine Pos (NEGATIVE)
[2025-05-28 01:32] LABS: Amphetamine Screen, Urine Neg (NEGATIVE); Barbiturate Scree,Urine Neg (NEGATIVE); Benzodiazephine Screen, Urine Neg (NEGATIVE); Cannabinoid Screen, Urine Neg (NEGATIVE); Cocaine Screen, Urine Neg (NEGATIVE); Phencyclidine Screen, Urine Neg (NEGATIVE)
[2025-05-28] MEDS: PANTOPRAZOLE 40 MG TAB PO ONE (04:59)
[2025-05-28] MEDS: LEVOTHYROXINE SODIUM 50 MCG TAB ONE (05:01)
[2025-05-28] MEDS: LEVOTHYROXINE SODIUM 50 MCG TAB PO SCH (05:34)
[2025-05-28] MEDS: CEFEPIME 1GM/50ML 50 ML IV ONE ×2 (05:39→14:37)
[2025-05-28] MEDS: InsuLIN REG 1unit/0.01ml Soln (100units/ml) ONE ×2 (05:45→11:20)
[2025-05-28 07:04] LABS: Hematocrit 43.3 % (36.0-46.0); Hemoglobin 14.9 g/dL (12.2-16.2); Mean Corpuscular Hemoglobin 31.3 pg (28.0-32.0); Mean Corpuscular Volume 90.9 fL (80.0-100.0); Nucleated Red Blood Cells % 0.2 %
[2025-05-28 07:15] LABS: Anion Gap 13 (5-15); BUN/Creatinine Ratio 21.2 (10.0-20.0); Blood Urea Nitrogen 14 mg/dL (9-23); Calcium 9.5 mg/dL (8.7-10.4); Carbon Dioxide 26 mmol/L (20-31); Chloride 103 mmol/L (98-107); Sodium 142 mmol/L (136-145); Total Protein 6.8 g/dL (5.7-8.2)
[2025-05-28 07:16] LABS: Alanine Aminotransferase 169 U/L (7-40); Albumin 4.0 g/dL (3.2-4.8); Alkaline Phosphatase 211 U/L (46-116); Bilirubin, Total 3.3 mg/dL (0.2-1.0); Glucose 153 mg/dL (74-106); Potassium 3.4 mmol/L (3.5-5.1)
[2025-05-28] MEDS: ENOXAPARIN SOD 40 MG/0.4 ML SYRINGE SC ONE (08:29)
[2025-05-28] MEDS: METOPROLOL SUCCINATE XL 50 MG TAB PO ONE (08:30)
[2025-05-28] MEDS: LOSARTAN POTASSIUM 50 MG TAB ONE (08:30)
[2025-05-28] MEDS: PANTOPRAZOLE 40 MG/10 ML VIAL INJ IV ONE (08:30)
[2025-05-28] MEDS: PANTOPRAZOLE 40 MG/10 ML VIAL INJ IV SCH (08:37)
[2025-05-28] MEDS: LOSARTAN POTASSIUM 50 MG TAB PO SCH (08:38)
[2025-05-28] MEDS: METOPROLOL SUCCINATE XL 50 MG TAB PO SCH (08:39)
[2025-05-28] MEDS: ENOXAPARIN SOD 40 MG/0.4 ML SYRINGE SC SCH (08:40)
--- NOTE | 2025-05-28 09:07 | DVHINCON2 ---
Date of service: May 28, 2025 Referring Physician Hospitalist Reason for Consultation kidney stone History of Present Illness History Source: Patient, MD Notes Exam Limitations: No limitations HPI 60-year-old female patient who presents to the ED with chief complaint of abdominal pain which initiated in epigastrium radiated towards umbilical area and then towards suprapubic area, associated with nausea and decreased appetite which started approximately one week ago. Patient also complaint of nonbloody diarrhea yellow in coloration which occurred for three days before episode (patient says that she had similar symptoms when she had an H. pylori infection). Denies any other associated symptom. Past medical history: Hypertension, dyslipidemia, diabetes, hypothyroidism, peptic ulcer disease secondary to H pylori, nonsurgical AAA (followed up by her PCP), rectal cancer status post resection, benign breast tumor, Gilbert syndrome Surgical history: EGD, multiple colonoscopies last one in 2023 which was clear from cancer, 2002 hysterectomy, breast lumpectomy, 2017 rectal cancer resection Family history: Colon cancer in all her family, breast cancer in mother Social history: Lives in [place] with family (next of kin is daughter, Yesica). Denies current tobacco, alcohol and other drug abuse Allergies: Erythromycin Home medication: Amlodipine5 mg p.o. daily, levothyroxine 50 mcg p.o. daily, losartan 100 mg p.o. daily, metoprolol 50 mg p.o. daily, metformin 1000 mg p.o. q.12, glipizide5 mg p.o. b.i.d. Home Meds Reported Medications Glipizide (Glipizide) 5 Mg Tab, 5 MG PO BID for 30 Days, MG 05/27/25 Metformin Hydrochloride (Metformin Hcl) 500 Mg Tab, 500 MG PO QID for 30 Days, MG 05/27/25 Losartan Potassium (Losartan Potassium) 100 Mg Tab, 100 MG PO DAILY for 30 Days, MG 05/27/25 Metoprolol Succinate (Metoprolol Succinate Er) 50 Mg Tab, 50 MG PO DAILY for 30 Days, MG 05/27/25 Levothyroxine Sodium (Levothyroxine Sodium) 50 Mcg Tab, 50 MCG PO QAM for 30 Days, MCG 05/27/25 Amlodipine Besylate (NORVASC TABLET) 5 Mg Tb, 1 TAB PO DAILY, #30 TAB 5 Refills 05/27/25 Past Medical History Patient Family History: Chronic obstructive pulmonary disease G8 MOTHER Colon cancer G8 MOTHER Review of Systems Gastrointestinal: Abdominal Pain H&P Exam Vital Signs Vital Signs Date Time Temp Pulse Resp B/P (MAP) Pulse Ox O2 Delivery O2 Flow Rate FiO2 05/28/25 08:52 97.8 75 18 140/90 (107) 97 97.8 05/28/25 08:00 Room Air* 0 21 General Appeara: Obese Neuro/Mental St: Alert, Oriented Appearance: Appropriate appearance, Appropriate insight Skin Exam: Normal inspection, Normal color, Warm/dry Labs/Xrays [place] [address] Ph: [phone] DIAGNOSTIC IMAGING Diagnostic Imaging Report : [id number] Signed PATIENT: ALEX GARCIA ACCT: [id number] UNIT: [id number] : 1965 LOC: OVERFLOW ROOM / BED: [address] [place] [address] / A AGE / SEX: 60 / F ADM STATUS: ADM IN SERVICE 1254 ORDERING PHYSICIAN: BHARATI BUTCHER RESIDENT PROCEDURE(s): LIVUS - LIVER REASON: transaminitis ORDER NUMBER(s): [id number], ACCESSION NUMBER(s): [id number] STUDY: US LIVER TECHNIQUE: RUQ ultrasound was obtained using standard technique with Doppler. INDICATIONS: transaminitis FINDINGS: PANCREAS: Partially obscured LIVER: Enlarged liver to 18.5 cm. Increased echogenicity.. No mass. GALLBLADDER: Surgically removed COMMON BILE DUCT: Dilated to 11.6 mm. RIGHT KIDNEY: Measures 11.5 cm, within normal limits. Nonobstructive stone measuring 1 cm at the midpole. No hydronephrosis. No renal mass. Normal echogenicity. IMPRESSION: 1. Enlarged fatty liver. 2. Dilated common bile duct. 3. Nonobstructive right renal stone. ATED BY: CHRISTIE HARO MD DICTATED DATE/TIME: 05/27/251411 SIGNED BY: CHRISTIE HARO MD SIGNED DATE/TIME: 05/27/251411 CC: [place] [address] Ph: [phone] DIAGNOSTIC IMAGING Diagnostic Imaging Report : [id number] Signed PATIENT: ALEX GARCIA ACCT: [id number] UNIT: [id number] : 1965 LOC: ER ROOM / BED: / AGE / SEX: 60 / F ADM STATUS: REG ER SERVICE 2 ORDERING PHYSICIAN: DAVID HYDE MD PROCEDURE(s): ABPLIV - CT AB PEL WITH IV CON ONLY REASON: abdominal pain ORDER NUMBER(s): [id number], ACCESSION NUMBER(s): [id number] CT abdomen and pelvis with contrast INDICATION: abdominal pain TECHNIQUE: Following IV administration of 100 cc Omnipaque 300 Serial axial images were performed through the abdomen and pelvis and then reformatted in the sagittal and coronal plane. All CT scans at this medical facility are performed using dose modulation techniques as appropriate to a performed exam including the following: Automated exposure control was utilized; adjustment of the MA and/or KvP according to patient size; and use of iterative reconstruction technique. FINDINGS: Lung bases clear. Liver and spleen are normal in size without focal mass. There is fatty infiltration of the liver. There is a 4-5 mm stone in the right renal pelvis with mild right hydronephrosis. No masses or enlargement of the adrenal glands or pancreas. No biliary dilatation. Gallbladder has been removed. No distention of bowel loops to suggest mechanical obstruction of bowel. The appendix is and not well seen. No free fluid. Within the pelvis, bladder is smooth walled without stones. No abnormal masses or fluid collections. IMPRESSION: 1. 4-5 mm stone right renal pelvis with mild hydronephrosis. Computed Tomographic Radiation Dosimetry Report: Total CTDI vol = 27 mGy Total DLP = 1526 mGy-cm Low dose protocols were performed. ATED BY: KARYNA MCLAIN MD DICTATED DATE/TIME: 05/27/25 1031 SIGNED BY: KARYNA MCLAIN MD SIGNED DATE/TIME: 05/27/25 1031 CC: Labs Test 05/28/25 05:32 05/28/25 04:33 05/28/25 00:45 05/27/25 13:46 Range/Units POC Glucose 183 H 70-106 mg/dl White Blood Count 4.3 L 4.4-10.8 10^3/uL Red Blood Count 4.76 4.0-5.20 10^6/uL Hemoglobin 14.9 12.2-16.2 g/dL Hematocrit 43.3 36.0-46.0 % Mean Corpuscular Volume 90.9 80.0-100.0 fL Mean Corpuscular Hemoglobin 31.3 28.0-32.0 pg Mean Corpuscular Hemoglobin Concent 34.4 32.0-36.0 g/dL Red Cell Distribution Width 13.8 11.8-14.3 % Platelet Count 238 140-450 10^3/uL Mean Platelet Volume 8.7 6.9-10.8 fL Neutrophils (%) (Auto) 63.9 37.0-80.0 % Lymphocytes (%) (Auto) 27.2 10.0-50.0 % Monocytes (%) (Auto) 6.7 0.0-12.0 % Eosinophils (%) (Auto) 1.6 0.0-7.0 % Basophils (%) (Auto) 0.6 0.0-2.0 % Neutrophils # (Auto) 2.8 1.6-8.6 10 ^3/uL Lymphocytes # (Auto) 1.2 0.4-5.4 10 ^3/uL Monocytes # (Auto) 0.3 0-1.3 10 ^3/uL Eosinophils # (Auto) 0.1 0-0.8 10 ^3/uL Basophils # (Auto) 0 0-0.2 10 ^3/uL Nucleated Red Blood Cells 0.2 % Sodium Level 142 # 136-145 mmol/L Potassium Level 3.4 L 3.5-5.1 mmol/L Chloride Level 103 98-107 mmol/L Carbon Dioxide Level 26 20-31 mmol/L Anion Gap 13 5-15 Blood Urea Nitrogen 14 9-23 mg/dL Creatinine 0.66 0.550-1.02 mg/dL Glomerular Filtration Rate Calc 100 >90 mL/min BUN/Creatinine Ratio 21.2 H 10.0-20.0 Serum Glucose 153 H 74-106 mg/dL Calcium Level 9.5 8.7-10.4 mg/dL Total Bilirubin 3.3 H 0.2-1.0 mg/dL Aspartate Amino Transferase (AST) 84 H 13-40 U/L Alanine Aminotransferase (ALT) 169 H 7-40 U/L Alkaline Phosphatase 211 H 46-116 U/L Total Protein 6.8 5.7-8.2 g/dL Albumin 4.0 3.2-4.8 g/dL Urine Opiates Screen Pos NEGATIVE Urine Fentanyl Screen Neg NEGATIVE Urine Barbiturates Screen Neg NEGATIVE Urine Phencyclidine Screen Neg NEGATIVE Urine Amphetamines Screen Neg NEGATIVE Urine Benzodiazepines Screen Neg NEGATIVE Urine Cocaine Screen Neg NEGATIVE Urine Cannabinoids Screen Neg NEGATIVE Prothrombin Time 10.8 9.3-11.8 sec Prothrombin Time INR 1.02 0.9-1.15 Activated Partial Thromboplast Time 26.1 24.5-34.5 SEC Test 05/27/25 10:27 05/27/25 08:05 05/27/25 07:45 Range/Units Lactic Acid Level 1.3 0.4-2.0 mmol/L Hemoglobin A1c 9.9 H <5.7 % A1C Phosphorus Level 2.6 2.4-5.1 mg/dL Magnesium Level 1.6 1.6-2.6 mg/dL Triglycerides Level 369 H < 150 mg/dL Cholesterol Level 226 H < 200 mg/dL LDL Cholesterol 121 H < 100 mg/dL HDL Cholesterol 22 L 40-59 mg/dL Lipase 37 12-53 U/L Thyroid Stimulating Hormone (TSH) 2.04 0.55-4.78 uIU/mL Urine Color Dark-yellow Yellow Urine Clarity Turbid H Clear Urine pH 6.0 5.0-9.0 Urine Specific [place] 1.020 1.001-1.035 Urine Protein 1+ H Negative Urine Ketones 3+ H Negative Urine Blood 3+ H Negative /uL Urine Nitrite Negative Negative Urine Bilirubin 2+ H Negative Urine Urobilinogen 4 H Negative mg/dL Urine Leukocyte Esterase 2+ Negative /uL Urine RBC 2863 0 - 4 /hpf Urine WBC Clumps Present None Seen /hpf Urine Microscopic WBC 78 H 0-5 /HPF Urine Squamous Epithelial Cells Few <5 /hpf Urine Bacteria None seen None Seen /hpf Urine Glucose 4+ H Normal mg/dL Assessment/Plan Problem List: (1) Syncopal episodes (2) Gastritis (3) Ureteral colic (4) Generalized weakness (5) Intractable abdominal pain Plan pain meds prn outpt urology follow up Plan discussed with: Patient, Other ASHISH SWIFT NP May 28, 2025 09:07
[2025-05-28] MEDS: LORazepam 0.5 MG TAB ONE (13:03)
[2025-05-28] MEDS: LORazepam 0.5 MG TAB PO ONE (13:07)
--- NOTE | 2025-05-28 14:00 | DVH ---
EXAM: MRI MRCP MRI HISTORY: Dilated bile duct, ruled out choledocholithiasis COMPARISON: None TECHNIQUE: Multiplanar, multisequence imaging of the abdomen was performed with and without contrast. FINDINGS: [LOWER CHEST]: No pleural effusion. [LIVER]: The liver is normal in size without focal lesions. Normal liver contour. [SPLEEN]: Unremarkable. [PANCREAS]: The pancreas is normal in appearance without focal lesions. Normal pancreatic duct size. [GALLBLADDER AND DUCTS]: Gallbladder is surgically absent mildly prominent common bile duct measuring up to 1.3 cm. No definitive choledocholithiasis and imaging finding may be related to reservoir fact however inconspicuous density of the ampulla of Vater which may be related to stenosis [ADRENAL GLANDS]: Unremarkable. [KIDNEYS]: Benign-appearing kidney cysts. No hydronephrosis [VISUALIZED BOWEL]: Grossly unremarkable. [VASCULATURE]: Unremarkable. [LYMPHADENOPATHY]: No evidence for lymphadenopathy. [ASCITES]: Absent. [MUSCULOSKELETAL]: Bone marrow signal is normal. [OTHER]: None IMPRESSION: 1. Inconspicuous density of the ampulla of Vater which may be related to stenosis. 2. Mildly prominent common bile duct measuring up to 1.3 cm. 3. No definitive choledocholithiasis.
--- NOTE | 2025-05-28 14:12 | DVHPN2 ---
Subjective 60-year-old female came with a chief complaint of abdominal pain for about 5 days consistent of pain in the epigastric and right upper quadrant radiating to the groin with some nausea She was found to be jaundiced with a total bilirubin of 5.5 AST 127 ALT 2 of 6 Her numbers look somewhat better today with a total bilirubin of 3.3 She also has 4-5 mm right kidney stone MRCP was just done showed possible stenosis of the ampulla of Vater with mildly prominent common bile duct measuring 1.3 cm The patient had cholecystectomy many years ago She also says she has Gilbert's syndrome Changes from previous H/P or p: Changes Objective Vitals Vital Signs Date Time Temp Pulse Resp B/P (MAP) Pulse Ox O2 Delivery O2 Flow Rate FiO2 05/28/25 12:34 97.6 73 18 148/82 (104) 96 97.6 05/28/25 08:00 Room Air* 0 21 Intake/Output Intake and Output 05/28/25 07:00 Intake Total 1650 ml Balance 1650 ml Intake Oral 600 ml IV Total 1050 ml # Voids 1 General Appearance: Alert, Oriented X3, Cooperative Cardiovascular: Regular rate, Normal S1, Normal S2 Abdomen: Normal bowel sounds, Soft, No tenderness Extremities: No edema Medications Current Medications Medications Dose Ordered Sig/Jayashree Route Start Time Stop Time Status Last Admin Dose Admin Ondansetron HCl 4 mg Q4HP PRN IV 05/27/25 12:45 05/27/25 18:47 4 MG Enoxaparin Sodium 40 mg DAILY SC 05/28/25 10:00 05/28/25 08:40 40 MG Ketorolac Tromethamine 15 mg Q6HPRN PRN IV 05/27/25 12:45 06/01/25 12:44 Cefepime HCl 50 ml @ 12.5 mls/hr Q8HR IV 05/27/25 14:00 05/28/25 05:45 12.5 MLS/HR Tamsulosin HCl 0.4 mg QPM PO 05/27/25 18:00 Sodium Chloride 1,000 ml @ 100 mls/hr Q10H IV 05/27/25 15:46 05/28/25 11:46 100 MLS/HR Pantoprazole Sodium 40 mg DAILY IV 05/28/25 10:00 05/28/25 08:37 40 MG Diagnostic Test (Pha) 1 strip ACHS 05/27/25 22:00 05/28/25 11:30 1 STRIP Insulin Human Regular ACHS SC 05/27/25 22:00 05/28/25 11:24 4 UNITS Dextrose 50 ml UD PRN IV 05/27/25 17:30 Amlodipine Besylate 5 mg DAILY PO 05/28/25 10:00 05/28/25 08:39 5 MG Metoprolol Succinate 50 mg DAILY PO 05/28/25 10:00 05/28/25 08:39 50 MG Losartan Potassium 100 mg DAILY PO 05/28/25 10:00 05/28/25 08:38 100 MG Levothyroxine Sodium 50 mcg QAM@0600 PO 05/28/25 06:00 05/28/25 05:34 50 MCG Laboratory Results Laboratory Tests 05/28/25 04:33 Chemistry Test 05/28/25 04:33 Albumin 4.0 g/dL (3.2-4.8) Calcium Level 9.5 mg/dL (8.7-10.4) Total Protein 6.8 g/dL (5.7-8.2) LFT Test 05/28/25 04:33 Alanine Aminotransferase (ALT) 169 U/L (7-40) H Alkaline Phosphatase 211 U/L (46-116) H Aspartate Amino Transferase (AST) 84 U/L (13-40) H Total Bilirubin 3.3 mg/dL (0.2-1.0) H Urinalysis Test 05/27/25 07:45 Urine Color Dark-yellow (Yellow) Urine Clarity Turbid (Clear) H Urine pH 6.0 (5.0-9.0) Urine Specific [place] 1.020 (1.001-1.035) Urine Protein 1+ (Negative) H Urine Ketones 3+ (Negative) H Urine Blood 3+ /uL (Negative) H Urine Nitrite Negative (Negative) Urine Bilirubin 2+ (Negative) H Urine Urobilinogen 4 mg/dL (Negative) H Urine Leukocyte Esterase 2+ /uL (Negative) Urine RBC 2863 /hpf (0 - 4) Urine WBC Clumps Present /hpf (None Seen) Urine Microscopic WBC 78 /HPF (0-5) H Urine Squamous Epithelial Cells Few /hpf (<5) Urine Bacteria None seen /hpf (None Seen) Urine Glucose 4+ mg/dL (Normal) H Microbiology Microbiology Date/Time Source Procedure Growth Status 05/27/25 10:36 Blood Blood Culture - Preliminary NO GROWTH AFTER 24 HOURS OF INCUBATION. Resulted Assessment/Plan Assessment/Plan Abdominal pain Biliary obstruction Right renal stone Morbid obesity Hypertension Mixed hyperlipidemia Type 2 diabetes Hypothyroidism History of peptic ulcer disease and H pylori infection Plan Clear liquid diet GI consult Broad-spectrum antibiotics IV fluids Pain management as needed Monitor closely Advance directives discussed for 17 minutes Full code Plan discussed with: Patient My Orders Orders - YOGI BAH MD Procedure Category Date Status Time * Gi Dvh Apple Checker CONS 05/28/25 Transmitted 13:56 Date of Service: May 28, 2025 Billing Provider: YOGI BAH MD Common Visit Codes: [id number] INP/OBS CARE(HIGH) Secondary Visit Codes: [id number] CARE PLAN 30 MINUTES YOGI BAH MD May 28, 2025 14:12
--- NOTE | 2025-05-28 20:44 | DVHINCON2 ---
Date of service: May 28, [address] Harris Reason for Consultation Elevated liver enzymes possible biliary obstruction History of Present Illness Lisa Antonio 60-year-old female patient who presents to the ED with chief complaint of abdominal pain which initiated in epigastrium radiated towards umbilical area and then towards suprapubic area, associated with nausea and decreased appetite which started approximately one week ago. Patient also complaint of nonbloody diarrhea yellow in coloration which occurred for three days before episode (patient says that she had similar symptoms when she had an H. pylori infection). Denies any other associated symptom. Patient was noted to have elevated liver enzymes and GI was consulted for the same. Past Medical History Past medical history: Hypertension, dyslipidemia, diabetes, hypothyroidism, peptic ulcer disease secondary to H pylori, nonsurgical AAA (followed up by her PCP), rectal cancer status post resection, benign breast tumor, Gilbert syndrome Past Surgical History Surgical history: EGD, multiple colonoscopies last one in 2023 which was clear from cancer, 2003 hysterectomy, breast lumpectomy, 2017 rectal cancer resection F Family History: Chronic obstructive pulmonary disease G8 MOTHER Colon cancer G8 MOTHER Family History Family history: Colon cancer in all her family, breast cancer in mother Social History Social history: Lives in [place] with family (next of kin is daughter, Yesica). Denies current tobacco, alcohol and other drug abuse Allergies: Coded Allergies: Erythromycin (Verified Allergy, Severe, 03/09/19) Fluconazole (Verified Allergy, Severe, 03/09/19) Glyburide (Verified Allergy, Severe, 03/09/19) Home Meds Reported Medications Glipizide (Glipizide) 5 Mg Tab, 5 MG PO BID for 30 Days, MG 05/27/25 Metformin Hydrochloride (Metformin Hcl) 500 Mg Tab, 500 MG PO QID for 30 Days, MG 05/27/25 Losartan Potassium (Losartan Potassium) 100 Mg Tab, 100 MG PO DAILY for 30 Days, MG 05/27/25 Metoprolol Succinate (Metoprolol Succinate Er) 50 Mg Tab, 50 MG PO DAILY for 30 Days, MG 05/27/25 Levothyroxine Sodium (Levothyroxine Sodium) 50 Mcg Tab, 50 MCG PO QAM for 30 Days, MCG 05/27/25 Amlodipine Besylate (NORVASC TABLET) 5 Mg Tb, 1 TAB PO DAILY, #30 TAB 5 Refills 05/27/25 Current Medications Current Medications Medications (Trade) Dose Ordered Sig/Jayashree Route PRN Reason Start Time Stop Time Status Last Admin Enoxaparin Sodium (Lovenox) 40 mg DAILY SC 05/28/25 10:00 05/28/25 08:40 Pantoprazole Sodium (Protonix) 40 mg DAILY IV 05/28/25 10:00 05/28/25 08:37 Diagnostic Test (Pha) (Accu-Chek Comfort Curve T) 1 strip ACHS 05/27/25 22:00 05/28/25 17:00 Insulin Human Regular (InsuLIN R) ACHS SC 05/27/25 22:00 05/28/25 17:33 Amlodipine Besylate (Norvasc Tablet) 5 mg DAILY PO 05/28/25 10:00 05/28/25 08:39 Metoprolol Succinate (Toprol Xl) 50 mg DAILY PO 05/28/25 10:00 05/28/25 08:39 Losartan Potassium (Cozaar Tablet) 100 mg DAILY PO 05/28/25 10:00 05/28/25 08:38 Levothyroxine Sodium (Synthroid Tablet) 50 mcg QAM@0600 PO 05/28/25 06:00 05/28/25 05:34 Review of Systems As per HPI Vital Signs Vital Signs Date Time Temp Pulse Resp B/P (MAP) Pulse Ox O2 Delivery O2 Flow Rate FiO2 05/28/25 16:38 97.8 73 18 114/68 (83) 94 97.8 05/28/25 08:00 Room Air* 0 21 Labs/Diagnostic Data Labs Test 05/28/25 16:30 05/28/25 04:33 05/28/25 00:45 05/27/25 13:46 Range/Units POC Glucose 191 H 70-106 mg/dl White Blood Count 4.3 L 4.4-10.8 10^3/uL Red Blood Count 4.76 4.0-5.20 10^6/uL Hemoglobin 14.9 12.2-16.2 g/dL Hematocrit 43.3 36.0-46.0 % Mean Corpuscular Volume 90.9 80.0-100.0 fL Mean Corpuscular Hemoglobin 31.3 28.0-32.0 pg Mean Corpuscular Hemoglobin Concent 34.4 32.0-36.0 g/dL Red Cell Distribution Width 13.8 11.8-14.3 % Platelet Count 238 140-450 10^3/uL Mean Platelet Volume 8.7 6.9-10.8 fL Neutrophils (%) (Auto) 63.9 37.0-80.0 % Lymphocytes (%) (Auto) 27.2 10.0-50.0 % Monocytes (%) (Auto) 6.7 0.0-12.0 % Eosinophils (%) (Auto) 1.6 0.0-7.0 % Basophils (%) (Auto) 0.6 0.0-2.0 % Neutrophils # (Auto) 2.8 1.6-8.6 10 ^3/uL Lymphocytes # (Auto) 1.2 0.4-5.4 10 ^3/uL Monocytes # (Auto) 0.3 0-1.3 10 ^3/uL Eosinophils # (Auto) 0.1 0-0.8 10 ^3/uL Basophils # (Auto) 0 0-0.2 10 ^3/uL Nucleated Red Blood Cells 0.2 % Sodium Level 142 # 136-145 mmol/L Potassium Level 3.4 L 3.5-5.1 mmol/L Chloride Level 103 98-107 mmol/L Carbon Dioxide Level 26 20-31 mmol/L Anion Gap 13 5-15 Blood Urea Nitrogen 14 9-23 mg/dL Creatinine 0.66 0.550-1.02 mg/dL Glomerular Filtration Rate Calc 100 >90 mL/min BUN/Creatinine Ratio 21.2 H 10.0-20.0 Serum Glucose 153 H 74-106 mg/dL Calcium Level 9.5 8.7-10.4 mg/dL Total Bilirubin 3.3 H 0.2-1.0 mg/dL Aspartate Amino Transferase (AST) 84 H 13-40 U/L Alanine Aminotransferase (ALT) 169 H 7-40 U/L Alkaline Phosphatase 211 H 46-116 U/L Total Protein 6.8 5.7-8.2 g/dL Albumin 4.0 3.2-4.8 g/dL Urine Opiates Screen Pos NEGATIVE Urine Fentanyl Screen Neg NEGATIVE Urine Barbiturates Screen Neg NEGATIVE Urine Phencyclidine Screen Neg NEGATIVE Urine Amphetamines Screen Neg NEGATIVE Urine Benzodiazepines Screen Neg NEGATIVE Urine Cocaine Screen Neg NEGATIVE Urine Cannabinoids Screen Neg NEGATIVE Prothrombin Time 10.8 9.3-11.8 sec Prothrombin Time INR 1.02 0.9-1.15 Activated Partial Thromboplast Time 26.1 24.5-34.5 SEC Test 05/27/25 10:27 05/27/25 08:05 05/27/25 07:45 Range/Units Lactic Acid Level 1.3 0.4-2.0 mmol/L Hemoglobin A1c 9.9 H <5.7 % A1C Phosphorus Level 2.6 2.4-5.1 mg/dL Magnesium Level 1.6 1.6-2.6 mg/dL Triglycerides Level 369 H < 150 mg/dL Cholesterol Level 226 H < 200 mg/dL LDL Cholesterol 121 H < 100 mg/dL HDL Cholesterol 22 L 40-59 mg/dL Lipase 37 12-53 U/L Thyroid Stimulating Hormone (TSH) 2.04 0.55-4.78 uIU/mL Urine Color Dark-yellow Yellow Urine Clarity Turbid H Clear Urine pH 6.0 5.0-9.0 Urine Specific [place] 1.020 1.001-1.035 Urine Protein 1+ H Negative Urine Ketones 3+ H Negative Urine Blood 3+ H Negative /uL Urine Nitrite Negative Negative Urine Bilirubin 2+ H Negative Urine Urobilinogen 4 H Negative mg/dL Urine Leukocyte Esterase 2+ Negative /uL Urine RBC 2863 0 - 4 /hpf Urine WBC Clumps Present None Seen /hpf Urine Microscopic WBC 78 H 0-5 /HPF Urine Squamous Epithelial Cells Few <5 /hpf Urine Bacteria None seen None Seen /hpf Urine Glucose 4+ H Normal mg/dL Microbiology Date/Time Source Procedure Growth Status 05/27/25 10:36 Blood Blood Culture - Preliminary NO GROWTH AFTER 24 HOURS OF INCUBATION. Resulted Abd Pelvic CT IMPRESSION: 1. 4-5 mm stone right renal pelvis with mild hydronephrosis. MRCP IMPRESSION: 1. Inconspicuous density of the ampulla of Vater which may be related to stenosis. 2. Mildly prominent common bile duct measuring up to 1.3 cm. 3. No definitive choledocholithiasis. RUQ USG IMPRESSION: 1. Enlarged fatty liver. 2. Dilated common bile duct. 3. Nonobstructive right renal stone Problems(with codes): (1) Dilation of biliary tract (2) Poorly controlled diabetes mellitus (3) UTI (urinary tract infection) (4) Ureteral colic (5) Generalized weakness (6) Intractable abdominal pain (7) Gastritis Plan/Recommendation Assessment plan Mild dilation of the CBD but no clear-cut evidence of choledocholithiasis on MRCP Possible mild prominence of the ampulla of Vater possible sphincter of Oddi dysfunction Awaiting hepatitis panel, continue to monitor labs Check urine culture IV fluids and IV antibiotics Continue IV PPI Elevated liver enzymes are trending down ; check hepatitis panel and TONI Patient could also have a SIRS inflammatory responses to urosepsis Possible outpatient elective ERCP if patient has persistent biliary dilation which I believe is post cholecystectomy state Plan discussed with: Other (Nurse) GUMARO ERAZO MD May 28, 2025 20:44
[2025-05-29 01:00] VITALS: BP 130/85; PULSE 63; RESP 17; TEMP 97.5; O2SAT 95
[2025-05-29 05:00] VITALS: BP 129/78; PULSE 68; RESP 17; TEMP 97.4; O2SAT 97
[2025-05-29 06:28] LABS: Anion Gap 13 (5-15); BUN/Creatinine Ratio 9.4 (10.0-20.0); Calcium 9.1 mg/dL (8.7-10.4); Carbon Dioxide 26 mmol/L (20-31); Chloride 105 mmol/L (98-107); Magnesium 1.7 mg/dL (1.6-2.6); Potassium 3.6 mmol/L (3.5-5.1); Sodium 144 mmol/L (136-145); Total Protein 6.2 g/dL (5.7-8.2)
[2025-05-29 06:29] LABS: Albumin 3.6 g/dL (3.2-4.8)
[2025-05-29 06:36] LABS: Alanine Aminotransferase 107 U/L (7-40); Alkaline Phosphatase 169 U/L (46-116); Bilirubin, Total 2.4 mg/dL (0.2-1.0); Blood Urea Nitrogen 6 mg/dL (9-23); Glucose 152 mg/dL (74-106)
[2025-05-29 08:00] VITALS: RESP 18
[2025-05-29] MEDS ORDERED: CEPH500C PO (08:38)
--- NOTE | 2025-05-29 08:42 | DVHDS2 ---
Discharge Summary Date of Admission May 27, 2025 at 12:45 Date of Discharge: May 29, 2025 Labs/Diagnostic Data: Laboratory Results Test 05/29/25 05:45 05/29/25 04:45 05/28/25 04:33 05/28/25 00:45 POC Glucose 179 mg/dl (70-106) Sodium Level 144 mmol/L (136-145) Potassium Level 3.6 mmol/L (3.5-5.1) Chloride Level 105 mmol/L (98-107) Carbon Dioxide Level 26 mmol/L (20-31) Anion Gap 13 (5-15) Blood Urea Nitrogen 6 mg/dL (9-23) Creatinine 0.64 mg/dL (0.550-1.02) Glomerular Filtration Rate Calc 100 mL/min (>90) BUN/Creatinine Ratio 9.4 (10.0-20.0) Serum Glucose 152 mg/dL (74-106) Calcium Level 9.1 mg/dL (8.7-10.4) Magnesium Level 1.7 mg/dL (1.6-2.6) Total Bilirubin 2.4 mg/dL (0.2-1.0) Aspartate Amino Transferase (AST) 50 U/L (13-40) Alanine Aminotransferase (ALT) 107 U/L (7-40) Alkaline Phosphatase 169 U/L (46-116) Total Protein 6.2 g/dL (5.7-8.2) Albumin 3.6 g/dL (3.2-4.8) White Blood Count 4.3 10^3/uL (4.4-10.8) Red Blood Count 4.76 10^6/uL (4.0-5.20) Hemoglobin 14.9 g/dL (12.2-16.2) Hematocrit 43.3 % (36.0-46.0) Mean Corpuscular Volume 90.9 fL (80.0-100.0) Mean Corpuscular Hemoglobin 31.3 pg (28.0-32.0) Mean Corpuscular Hemoglobin Concent 34.4 g/dL (32.0-36.0) Red Cell Distribution Width 13.8 % (11.8-14.3) Platelet Count 238 10^3/uL (140-450) Mean Platelet Volume 8.7 fL (6.9-10.8) Neutrophils (%) (Auto) 63.9 % (37.0-80.0) Lymphocytes (%) (Auto) 27.2 % (10.0-50.0) Monocytes (%) (Auto) 6.7 % (0.0-12.0) Eosinophils (%) (Auto) 1.6 % (0.0-7.0) Basophils (%) (Auto) 0.6 % (0.0-2.0) Neutrophils # (Auto) 2.8 10 ^3/uL (1.6-8.6) Lymphocytes # (Auto) 1.2 10 ^3/uL (0.4-5.4) Monocytes # (Auto) 0.3 10 ^3/uL (0-1.3) Eosinophils # (Auto) 0.1 10 ^3/uL (0-0.8) Basophils # (Auto) 0 10 ^3/uL (0-0.2) Nucleated Red Blood Cells 0.2 % Urine Opiates Screen Pos (NEGATIVE) Urine Fentanyl Screen Neg (NEGATIVE) Urine Barbiturates Screen Neg (NEGATIVE) Urine Phencyclidine Screen Neg (NEGATIVE) Urine Amphetamines Screen Neg (NEGATIVE) Urine Benzodiazepines Screen Neg (NEGATIVE) Urine Cocaine Screen Neg (NEGATIVE) Urine Cannabinoids Screen Neg (NEGATIVE) Test 05/27/25 13:46 05/27/25 10:27 05/27/25 08:05 05/27/25 07:45 Prothrombin Time 10.8 sec (9.3-11.8) Prothrombin Time INR 1.02 (0.9-1.15) Activated Partial Thromboplast Time 26.1 SEC (24.5-34.5) Lactic Acid Level 1.3 mmol/L (0.4-2.0) Hemoglobin A1c 9.9 % A1C (<5.7) Phosphorus Level 2.6 mg/dL (2.4-5.1) Triglycerides Level 369 mg/dL (< 150) Cholesterol Level 226 mg/dL (< 200) LDL Cholesterol 121 mg/dL (< 100) HDL Cholesterol 22 mg/dL (40-59) Lipase 37 U/L (12-53) Thyroid Stimulating Hormone (TSH) 2.04 uIU/mL (0.55-4.78) Urine Color Dark-yellow (Yellow) Urine Clarity Turbid (Clear) Urine pH 6.0 (5.0-9.0) Urine Specific [place] 1.020 (1.001-1.035) Urine Protein 1+ (Negative) Urine Ketones 3+ (Negative) Urine Blood 3+ /uL (Negative) Urine Nitrite Negative (Negative) Urine Bilirubin 2+ (Negative) Urine Urobilinogen 4 mg/dL (Negative) Urine Leukocyte Esterase 2+ /uL (Negative) Urine RBC 2863 /hpf (0 - 4) Urine WBC Clumps Present /hpf (None Seen) Urine Microscopic WBC 78 /HPF (0-5) Urine Squamous Epithelial Cells Few /hpf (<5) Urine Bacteria None seen /hpf (None Seen) Urine Glucose 4+ mg/dL (Normal) Other Laboratory Tests 05/29/25 04:45 05/28/25 04:33 Brief Hx & Hospital Course: Final diagnoses: Abdominal pain Biliary obstruction Right renal stone UTI Morbid obesity Hypertension Mixed hyperlipidemia Type 2 diabetes poorly controlled Hypothyroidism History of peptic ulcer disease and H pylori infection Dilatation of the biliary tract Gastritis 60-year-old female who was admitted for abdominal pain and was found to have elevated liver function tests and elevated bilirubin indicating possible biliary obstruction CT scan of the abdomen showed 4-5 mm stone in the right renal pelvis Because of the elevated liver function test we did an MRCP which showed possible stenosis in the ampulla of Vater with mild dilatation of the common bile duct but no hard evidence of choledocholithiasis Liver ultrasound showed enlarged fatty liver and dilated common bile duct GI consult was obtained, Dr. Navarro recommended medical management and observation since her liver functions improved spontaneously Her bilirubin today is 2.4 She is asymptomatic AST ALT and alkaline phosphatase are getting better Other lab values are with a normal Discharged home for outpatient follow up Cephalexin for 5 days for the UTI Condition at Discharge: Stable Final Diagnosis/Problems List Abdominal pain Biliary obstruction Right renal stone Morbid obesity Hypertension Mixed hyperlipidemia Type 2 diabetes Hypothyroidism History of peptic ulcer disease and H pylori infection Discharge Disposition: Home SNF Discharge Will this Physician continue t: No Discharge Instruct/Medications Diet: Consistent carbohydrate, Cardiac 2g Na,low cholest Activity: No Restrictions, As Tolerated Follow Up/Referral: PCP HOLLI Medications: Same home meds Cephalexin 500 mg t.i.d. for 5 days Scheduled Amlodipine Besylate (Norvasc Tablet), 1 TAB PO DAILY, (Reported) Cephalexin Monohydrate (Cephalexin), 1 CAP PO TID Glipizide (Glipizide), 5 MG PO BID, (Reported) Levothyroxine Sodium (Levothyroxine Sodium), 50 MCG PO QAM, (Reported) Losartan Potassium (Losartan Potassium), 100 MG PO DAILY, (Reported) Metformin Hydrochloride (Metformin Hcl), 500 MG PO QID, (Reported) Metoprolol Succinate (Metoprolol Succinate Er), 50 MG PO DAILY, (Reported) Discharge Statement: "Patient was advised to return to the ER or call 911 if any headaches, dizziness, shortness of breath, chest pain, abdominal pain, bleeding, fevers, or worsening of medical condition. Patient was counseled about treatment plan, medications, possible side effects, patientverbalized understanding. All questions were answered to the best of my ability. This discharge took greater then 30 minutes in planning, reviewing documentation, counseling the patient, and discussing with other team members." ASSESSMENT ASSESSMENT Assessment Abdominal pain Biliary obstruction Right renal stone Morbid obesity Hypertension Mixed hyperlipidemia Type 2 diabetes Hypothyroidism History of peptic ulcer disease and H pylori infection Date of Service: May 29, 2025 Billing Provider: YOGI BAH MD Common Visit Codes: [id number] DISCH DAY >30min YOGI BAH MD May 29, 2025 08:42
[2025-05-29 09:00] VITALS: BP 136/83; PULSE 69; RESP 14; TEMP 97.1; O2SAT 96
[2025-05-29 10:06] LABS: Hepatitis B Surface Antigen Negative (Negative)
[2025-05-29 10:11] VITALS: BP 138/83; PULSE 69; TEMP 36.2
[2025-05-29 10:26] LABS: Hepatitis C Antibody Negative (Negative)
--- NOTE | 2025-05-29 12:29 | DVHPN2 ---
Progress Note - Dictate Date Seen: May 29, 2025 Medical Necessity Reason Pt with a Central, PICC or Fol: No Subjective No new complaints Patient is tolerating diet Liver enzymes are continuing to trend downwards and bilirubin is down to 2.4 vital signs Vital Sign Date Time Temp Pulse Resp B/P (MAP) Pulse Ox O2 Delivery O2 Flow Rate FiO2 05/29/25 10:11 36.2 69 05/29/25 09:55 138/83 05/29/25 09:00 14 96 05/29/25 08:24 Room Air* 0 21 Total Intake and Output 05/28/25 05/28/25 05/29/25 15:00 23:00 07:00 Intake Total 50 ml 950 ml 1250 ml Balance 50 ml 950 ml 1250 ml medications Current Medications Medications Dose Ordered Sig/Jayashree Route Start Time Stop Time Status Last Admin Dose Admin Ondansetron HCl 4 mg Q4HP PRN IV 05/27/25 12:45 05/27/25 18:47 4 MG Enoxaparin Sodium 40 mg DAILY SC 05/28/25 10:00 05/29/25 09:53 40 MG Ketorolac Tromethamine 15 mg Q6HPRN PRN IV 05/27/25 12:45 06/01/25 12:44 Cefepime HCl 50 ml @ 12.5 mls/hr Q8HR IV 05/27/25 14:00 05/29/25 06:09 12.5 MLS/HR Tamsulosin HCl 0.4 mg QPM PO 05/27/25 18:00 05/28/25 17:29 0.4 MG Sodium Chloride 1,000 ml @ 100 mls/hr Q10H IV 05/27/25 15:46 05/28/25 21:46 100 MLS/HR Pantoprazole Sodium 40 mg DAILY IV 05/28/25 10:00 05/29/25 09:53 40 MG Diagnostic Test (Pha) 1 strip ACHS 05/27/25 22:00 05/29/25 11:16 1 STRIP Insulin Human Regular ACHS SC 05/27/25 22:00 05/29/25 11:16 2 UNITS Dextrose 50 ml UD PRN IV 05/27/25 17:30 Amlodipine Besylate 5 mg DAILY PO 05/28/25 10:00 05/29/25 09:55 5 MG Metoprolol Succinate 50 mg DAILY PO 05/28/25 10:00 05/29/25 09:54 50 MG Losartan Potassium 100 mg DAILY PO 05/28/25 10:00 05/29/25 09:55 100 MG Levothyroxine Sodium 50 mcg QAM@0600 PO 05/28/25 06:00 05/29/25 06:08 50 MCG objective General Appeara: Obese Neuro/Mental St: Alert, Oriented Appearance: Appropriate appearance, Appropriate insight Skin Exam: Normal inspection, Normal color, Warm/dry laboratory and microbiology Laboratory Tests 05/29/25 04:45 05/28/25 04:33 Test 05/29/25 04:45 Range/Units Serum Glucose 152 H 74-106 mg/dL Problems(with codes): (1) Dilation of biliary tract (2) UTI (urinary tract infection) (3) Gastritis (4) Intractable abdominal pain (5) Generalized weakness (6) Ureteral colic Prognosis Assessment plan Discharge planning is in progress Mild dilation of the CBD but no clear-cut evidence of choledocholithiasis on MRCP Possible mild prominence of the ampulla of Vater possible sphincter of Oddi dysfunction Liver enzymes trending down Patient is being discharged on oral antibiotics for UTI Continue PPI Elevated liver enzymes are trending down ; hepatitis panel negative Patient could also have a SIRS inflammatory responses to urosepsis Outpatient follow up with urology and with GI Services Possible outpatient elective ERCP if patient has persistent biliary dilation which I believe is post cholecystectomy state Plan discussed with: Patient GUMARO ERAZO MD May 29, 2025 12:29
[2025-05-29 12:36] VITALS: BP 125/86; PULSE 66; RESP 16; TEMP 97; O2SAT 99
== END 2025-05-29 13:08 | disposition home or self-care (01) ==
LOC: ER 07:20 → OVERFLOW 12:45 → WEST WING 20:30
PROVIDERS: ADMIT Internal Medicine Geriatric Medicine; ATTEND Internal Medicine Geriatric Medicine
DX: K83.1 Obstruction of bile duct (principal); N13.6 Pyonephrosis; E03.9 Hypothyroidism, unspecified; I10 Essential (primary) hypertension; E66.01 Morbid (severe) obesity due to excess calories; E11.65 Type 2 diabetes mellitus with hyperglycemia; R74.01 Elevation of levels of liver transaminase levels; E80.4 Gilbert syndrome; R31.29 Other microscopic hematuria; E78.2 Mixed hyperlipidemia; K82.8 Other specified diseases of gallbladder; K29.70 Gastritis, unspecified, without bleeding; Z88.8 Allergy status to other drugs, medicaments and biological substances; Z90.49 Acquired absence of other specified parts of digestive tract; Z90.710 Acquired absence of both cervix and uterus; Z87.11 Personal history of peptic ulcer disease; Z80.3 Family history of malignant neoplasm of breast; Z80.0 Family history of malignant neoplasm of digestive organs; Z85.048 Personal history of other malignant neoplasm of rectum, rectosigmoid junction, and anus; Z68.43 Body mass index [BMI] 50.0-59.9, adult; Z82.5 Family history of asthma and other chronic lower respiratory diseases
CPT/HCPCS: 36415; 71045; 74177; 74181; 76705; 80053; 80061; 80074; 80307; 81001; 82306; 82607; 82962; 83036; 83605; 83690; 83735; 84100; 84443; 85025; 85610; 85730; 87040; 96365; 96375; 99291; G0378; J0692; J1815; J1885; J2405; J2470